=== PATIENT | female | born 2000 | race African-American/Black ===

== ENCOUNTER 2020-08-08 20:59 | Emergency (ER) | payer SELFPAY ==
[~2020-08-08] VITALS: Ht 165 cm; Wt 54.0 kg
[2020-08-08 21:13] VITALS: BP 106/46
--- NOTE | 2020-08-08 21:28 | ED Integumentary General ---
General Chief Complaint: Allergic Reaction Stated Complaint: HIVES ALL OVER BODY Source: patient Exam Limitations: no limitations History of Present Illness Date Seen by Provider: August 08, 2020 Time Seen by Provider: 21:16 Initial Comments This is a well-appearing 20-year-old female who presents to the ER with complaints of rash and itching all over her body started few days ago. States she took Benadryl yesterday which helped but the itching has resumed again today. Denies any new foods, medications, soaps or lotions. Unknown trigger. Denies shortness of breath, sore throat, difficulty breathing. No other complaints. Allergies and Home Medications Allergies Coded Allergies: No Known Drug Allergies (Unverified , 08/08/20) Patient Home Medication List Home Medication List Reviewed: Yes Review of Systems Review of Systems Constitutional: no symptoms reported EENTM: no symptoms reported Respiratory: no symptoms reported Cardiovascular: no symptoms reported Gastrointestinal: no symptoms reported Genitourinary: no symptoms reported Musculoskeletal: no symptoms reported Skin: see HPI Psychiatric/Neurological: No Symptoms Reported Endocrine: No Symptoms Reported Hematologic/Lymphatic: No Symptoms Reported Physical Exam Vital Signs Vital Signs - First Documented 08/08/20 21:13 Temp 36.4 Pulse 96 Resp 20 B/P (MAP) 106/46 (66) Pulse Ox 99 O2 Delivery Room Air Capillary Refill : General Appearance: WD/WN, no apparent distress HEENT: PERRL/EOMI, normal ENT inspection Neck: full range of motion, normal inspection Cardiovascular: regular rate, rhythm, no murmur Respiratory: lungs clear, normal breath sounds Back: normal inspection Extremities: normal range of motion, non-tender, normal inspection Neurologic/Psychiatric: no motor/sensory deficits, alert, normal mood/affect, oriented x 3 Skin: normal color, warm/dry Skin Problem Location: generalized Skin Problem Character: erythema (Small area on right lower extremity and left upper arm, appears to have recently scratched area.) Progress/Results/Core Measures Results/Orders My Orders Orders - MARLYN VELA APRN Diphenhydramine Tablet (Benadryl Tablet) (08/08/20 21:30) Dexamethasone Injection (Decadron Inje (08/08/20 21:30) Methylprednisolone Acetate Inj (Depo-Med (08/08/20 21:30) Medications Given in ED Current Medications Medications Dose Ordered Sig/Mike Route Start Time Stop Time Status Last Admin Dose Admin Dexamethasone Sodium Phosphate 4 mg ONCE ONCE IM 08/08/20 21:30 08/08/20 21:31 DC 08/08/20 21:28 4 MG Diphenhydramine HCl 25 mg ONCE ONCE PO 08/08/20 21:30 08/08/20 21:31 DC 08/08/20 21:28 25 MG Methylprednisolone Acetate 40 mg ONCE ONCE IM 08/08/20 21:30 08/08/20 21:31 DC 08/08/20 21:28 40 MG Vital Signs/I&O 08/08/20 21:13 Temp 36.4 Pulse 96 Resp 20 B/P (MAP) 106/46 (66) Pulse Ox 99 O2 Delivery Room Air Progress Progress Note : Progress Note Patient examined and in no acute distress. No rash seen on body other than a couple areas of erythema which appears to be areas that she recently scratched. Orders placed for Decadron 4 mg and Depo-Medrol 40 mg IM and to be given Benadryl 25 mg p.o. Discussed taking non drowsy medication such as Claritin or Zyrtec in the daytime and continue using Benadryl as needed for itching. Reviewed discharge plan of care and she is agreeable with plan. Departure Impression Primary Impression: Generalized pruritus Disposition: 01 HOME, SELF-CARE Condition: Improved Departure-Patient Inst. Decision time for Depature: 21:26 Patient Instructions: Itchy Skin Add. Discharge Instructions: Plan: 1. Use Claritin OR Zyrtec daily to prevent drowsiness. 2. May use Benadryl 25mg by mouth every 6 hours as needed for itching and drowsiness. 3. Avoid triggers. You may have to slowly eliminate items to find triggers. 4. Return to ER for any new or concerning symptoms. All discharge instructions reviewed with patient and/or family. Voiced understanding. MARLYN VELA [employer] August 08, 2020 21:28
[2020-08-08] MEDS ORDERED: methylPREDNISolone 40 MG/ML (DEPO MEDROL) VIAL IM ONE (21:30)
[2020-08-08] MEDS ORDERED: diphenhydrAMINE 25 MG TAB (BENADRYL) PO ONE (21:30)
== END 2020-08-08 21:40 | disposition home or self-care (01) ==
LOC: ER 21:04
DX: L29.9 Pruritus, unspecified (principal)
CPT/HCPCS: 99284

== ENCOUNTER 2020-09-28 23:14 | Emergency (ER) | payer SELFPAY ==
[~2020-09-28] VITALS: Ht 163 cm; Wt 54.4 kg
[2020-09-29] MEDS ORDERED: RX-ONDANSETRON 4 MG ODT (ZOFRAN) PPK #4 PO STA (01:06)
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
[2020-09-29] MEDS ORDERED: ONDA4TAB11 PO (01:17)
[2020-09-29 01:21] VITALS: BP 111/62
== END 2020-09-29 01:23 | disposition home or self-care (01) ==
LOC: EDUNIT# 23:14 → ER 23:20
DX: S06.0X1A Concussion with loss of consciousness of 30 minutes or less, initial encounter (principal); S00.11XA Contusion of right eyelid and periocular area, initial encounter; R40.2410 Glasgow coma scale score 13-15, unspecified time; V00.832A Motorized mobility scooter colliding with stationary object, initial encounter
CPT/HCPCS: 99283